=== PATIENT | female | born 2000 | race Caucasian/White ===

== ENCOUNTER 2023-11-10 20:54 | Observation (INO) ==
[2023-11-10 21:23] LABS: Basophils # (auto) 0.06 K/uL (0.00-0.20); Basophils % (auto) 0.5 %; Eosinophils # (auto) 0.02 K/uL (0.00-0.50); Eosinophils % (auto) 0.2 %; Hemoglobin 11.9 g/dl (12.0-16.0); Immature Granulocytes # (auto) 0.04 K/uL (0.01-0.20); Immature Granulocytes % (auto) 0.3 %; Lymphocytes # (auto) 1.25 K/uL (1.20-3.40); Lymphocytes % (auto) 10.7 %; Mean Corpuscular Hemoglobin 28.6 pg (25.0-34.0); Mean Corpuscular Hgb Conc 32.2 g/dL (32.0-36.0); Mean Corpuscular Volume 88.9 fL (80.0-100.0); Mean Platelet Volume 10.1 fL (9.4-12.4); Monocytes # (auto) 0.84 K/uL (0.11-0.59); Monocytes % (auto) 7.2 %; Neutrophils # (auto) 9.42 K/uL (1.40-6.50); Neutrophils % (auto) 81.1 %; Platelet Count 297 K/uL (130-400); RDW Coefficient of Variation 14.4 % (11.5-14.5); RDW Standard Deviation 46.6 fL (36.4-46.3); Red Blood Count 4.16 M/uL (4.20-5.40); White Blood Count 11.63 K/ul (4.8-10.8)
[2023-11-10 21:36] LABS: Pregnancy Test, Serum Negative (Negative)
--- NOTE | 2023-11-10 21:37 | Emergency Department Note ---
History of Present Illness General Chief complaint: Chest Pain Stated complaint: REACTION TO MEDS, NAUSEA, CHEST PAIN, PERIOD EARLY Time Seen by Provider: 11/10/23 21:10 History of Present Illness Maximum Pain Intensity: 7 NAME: IZA SAMSON AGE: 23 SEX: F : 2000 ARRIVES VIA: Walk-In INFORMANT: Patient, Boyfriend ED PROVIDER(S): ALLYSSA Condon, Jm Peralta DO The patient is a pleasant 23-year-old female who arrives to the emergency department with her significant other for evaluation of syncope, chest pain, shortness of breath, as well as dysuria and abdominal pain. She reports she has had multiple episodes of syncope, due to not feeling well. She has been seen in the emergency department twice prior to today's visit. She reports she was diagnosed with a urinary tract infection, however states she feels as if she is getting worse. She denies fever, and reports she had some nausea with vomiting today. Home Medications Medication Instructions Recorded Confirmed Type ciprofloxacin HCl 500 mg tablet 500 mg PO BID 5 days #10 tabs 11/11/23 Rx Allergies Allergy/AdvReac Type Severity Reaction Status Date / Time No Known Allergies Allergy Verified 11/10/23 21:10 Past Med/Surg History Problem List (Updated 11/12/23 @ 00:41 by ALLYSSA Reynolds) Pyelonephritis (Acute) Chest pain Acute dehydration (Acute) UTI (urinary tract infection) (Acute) Syncope (Acute) Hematuria (Acute) Medical History Urinary tract infection Social History Smoking Status: Never smoker Hx Alcohol Use: No Hx Substance Use: No Preferred Language: Sinhala Garageman Required: No Beliefs That Will Affect Care: None Current Living Situation: Significant Other Feels Safe at Home: Yes Physical Exam Vital Signs Vital Signs - 24 hr 11/10/23 20:56 11/10/23 21:09 11/10/23 21:13 Temperature 36.8 C Temperature Source Temporal Artery Scan Pulse Rate 122 H 96 H Pulse Rate [Right Finger] 96 H Respiratory Rate 16 19 Respiratory Effort / Characteristics Non-Labored Spontaneous Respiratory Depth Normal Blood Pressure 119/82 Blood Pressure [Right Arm] 118/71 Blood Pressure Mean 94 Blood Pressure Mean [Right Arm] 86 Pulse Oximetry 98 99 Oxygen Delivery Method Room Air Room Air Sepsis Recent Fever Within 48 Hours No Sepsis New/Unexplained Change in Mental Status No Sepsis Action Taken by Nursing No Action Required 11/10/23 21:13 11/10/23 21:44 11/10/23 22:32 Temperature Temperature Source Pulse Rate Pulse Rate [Right Finger] 101 H 93 H Respiratory Rate 19 16 Respiratory Effort / Characteristics Respiratory Depth Blood Pressure Blood Pressure [Right Arm] 107/67 113/82 Blood Pressure Mean Blood Pressure Mean [Right Arm] 80 92 Pulse Oximetry 100 99 Oxygen Delivery Method Room Air Room Air Room Air Sepsis Recent Fever Within 48 Hours Sepsis New/Unexplained Change in Mental Status Sepsis Action Taken by Nursing 11/10/23 23:48 Temperature Temperature Source Pulse Rate Pulse Rate [Right Finger] 105 H Respiratory Rate 19 Respiratory Effort / Characteristics Respiratory Depth Blood Pressure Blood Pressure [Right Arm] Blood Pressure Mean Blood Pressure Mean [Right Arm] Pulse Oximetry 99 Oxygen Delivery Method Room Air Sepsis Recent Fever Within 48 Hours Sepsis New/Unexplained Change in Mental Status Sepsis Action Taken by Nursing VITALS: Vitals are noted on the nurse's note and reviewed by myself. Vital signs stable. GENERAL: 23-year-old female, in no acute distress, nondiaphoretic, well- developed well-nourished. SKIN: The skin was without rashes, erythema, edema, or bruising. HEAD: Normocephalic atraumatic. HEART: Regular rate and rhythm without murmurs gallops or rubs. LUNGS: Clear to auscultation bilaterally without wheezes, rales or rhonchi. No retractions or accessory muscle use. ABDOMEN: Positive bowel sounds x 4. Tender to palpation diffusely mid abdomen, no rebound tenderness or guarding. MUSCULOSKELETAL: No muscle atrophy, erythema, or edema noted. Normal gait. Strength 5/5 throughout. NEURO: Patient was alert and oriented to person place and time. No focal neurological deficits. Course Administered Medications Discontinued Medications Docusate Sodium (Docusate Sodium 100 Mg Cap) 100 mg PO BID ELIAN Stop: 12/11/23 08:59 Last Admin: 11/11/23 08:22 Dose: 100 mg Documented By: JANET Sodium Chloride (Nss) 1,000 mls @ 999 mls/hr IV .Q1H1M ONE Stop: 11/10/23 22:39 Last Infusion: 11/10/23 21:44 Dose: Infused Documented By: Admin: 11/10/23 21:44 Dose: 999 mls/hr Documented By: ASW Ceftriaxone Sodium (Rocephin) 1,000 mg in 50 mls @ 100 mls/hr IV NOW STA Stop: 11/10/23 23:59 Last Infusion: 11/11/23 00:06 Dose: Infused Documented By: Admin: 11/10/23 23:40 Dose: 100 mls/hr Documented By: ASW Sodium Chloride (Nss) 1,000 mls @ 999 mls/hr IV .Q1H1M ONE Stop: 11/11/23 00:30 Last Infusion: 11/11/23 00:38 Dose: Infused Documented By: Admin: 11/10/23 23:40 Dose: 999 mls/hr Documented By: ASW Lactated Ringer's (Lr) 1,000 mls @ 100 mls/hr IV .Q10H ELIAN Stop: 11/11/23 21:55 Last Admin: 11/11/23 02:12 Dose: 100 mls/hr Documented By: KARTHIK Ioversol (Optiray 320 100ml) 93 ml IV ONCE ONE Stop: 11/10/23 22:11 Last Admin: 11/10/23 22:10 Dose: 93 ml Documented By: ANNA MARIE Ioversol (Optiray 320 125ml) 118 ml IV ONCE ONE Stop: 11/11/23 00:39 Last Admin: 11/11/23 00:39 Dose: 118 ml Documented By: RASHAAD Ketorolac Tromethamine (Ketorolac Tromethamine 15 Mg/Ml Vial) 10 mg IV NOW ONE Stop: 11/10/23 23:31 Last Admin: 11/10/23 23:40 Dose: 10 mg Documented By: ASDalton Ondansetron HCl (Ondansetron Inj 2 Mg/Ml 2 Ml Vial) 4 mg IV NOW STA Stop: 11/10/23 21:40 Last Admin: 11/10/23 21:44 Dose: 4 mg Documented By: ASDalton Polyethylene Glycol (Polyethylene (Miralax) 17 Gm Pack) 17 gm PO DAILY ELIAN Stop: 12/11/23 08:59 Last Admin: 11/11/23 08:22 Dose: 17 gm Documented By: JANET Medical Decision Making Differential Diagnosis Appendicitis, ovarian cyst, ovarian torsion, ectopic , TOA, PID, infections, diverticulitis, UTI, obstruction, mesenteric ischemia, aortic pathology, inflammatory bowel disease, renal colic, PUD, pancreatitis, biliary pathology, hernia, volvulus, constipation, as well as other pathologies. Medical Records Attestation: I reviewed the patient's medical records. Home Medications Current Medication List: was personally reviewed by me Laboratory Data Attestation: I reviewed the patient's lab results. CBC shows leukocytosis, 11.63, hemoglobin 11.9, hematocrit 37.0, no significant electrolyte abnormalities. D-dimer negative, lactate 1.2, urinalysis positive for 2+ blood, positive nitrites, trace leukocyte esterase. 11/11/23 06:03 11/11/23 06:03 Lab Results 11/10/23 11/10/23 11/10/23 Range/Units 21:09 22:53 23:43 WBC 11.63 H (4.8-10.8) K/ul RBC 4.16 L (4.20-5.40) M/uL Hgb 11.9 L (12.0-16.0) g/dl Hct 37.0 (37.0-47.0) % MCV 88.9 (80.0-100.0) fL MCH 28.6 (25.0-34.0) pg MCHC 32.2 (32.0-36.0) g/dL RDW Std Deviation 46.6 H (36.4-46.3) fL RDW Coeff of Johnny 14.4 (11.5-14.5) % Plt Count 297 (130-400) K/uL MPV 10.1 (9.4-12.4) fL Immature Gran % (Auto) 0.3 % Neut % (Auto) 81.1 % Lymph % (Auto) 10.7 % [place] % (Auto) 7.2 % Eos % (Auto) 0.2 % Baso % (Auto) 0.5 % Neut # (Auto) 9.42 H (1.40-6.50) K/uL Lymph # (Auto) 1.25 (1.20-3.40) K/uL [place] # (Auto) 0.84 H (0.11-0.59) K/uL Eos # (Auto) 0.02 (0.00-0.50) K/uL Baso # (Auto) 0.06 (0.00-0.20) K/uL Immature Gran # (Auto) 0.04 (0.01-0.20) K/uL D-Dimer 310 (0-500) ug/L FEU Sodium 138 (136-145) mmol/L Potassium 3.6 (3.5-5.1) mmol/L Chloride 107 (98-107) mmol/L Carbon Dioxide 22 (21-32) mmol/L Anion Gap 9 (3-11) BUN 15 (6-23) mg/dl Creatinine 1.07 (0.6-1.2) mg/dl Est Cr Clr Drug Dosing 63.3 ml/min Est GFR ( Amer) 85.9 ml/min Est GFR (Non-Af Amer) 74.2 ml/min BUN/Creatinine Ratio 14.0 (10-20) Glucose 102 H (70-99(Fasting)) mg/dl Lactate 1.2 (0.4-2.0) mmol/L Calcium 9.6 (8.6-10.3) mg/dl Total Bilirubin 1.7 H (0.2-1.0) mg/dl AST 16 (13-39) U/L ALT 8 (7-52) U/L Alkaline Phosphatase 63 (34-104) U/L Troponin I High Sens < 2.3 (0-14) pg/ml Total Protein 7.7 (6.0-8.3) gm/dl Albumin 4.6 (3.4-5.0) gm/dl Globulin 3.1 (2.5-4.0) gm/dl Albumin/Globulin Ratio 1.5 (0.9-2) Lipase 15 (11-82) U/L HCG, Qual Negative (Negative) Urine Color Dark Yellow Urine Appearance Clear (Clear) Urine pH 6.0 (4.5-7.5) Ur Specific [place] 1.022 (1.000-1.030) Urine Protein Negative (Negative) Urine Glucose (UA) Negative (Negative) Urine Ketones Trace H (Negative) Urine Blood 2+ H (Negative) Urine Nitrite Positive A (Negative) Urine Bilirubin Negative (Negative) Urine Urobilinogen Negative (Negative) Ur Leukocyte Esterase Trace H (Negative) Urine WBC (Auto) 0-5 (0-5) /hpf Urine RBC (Auto) >20 H (0-2) /hpf U Hyaline Cast (Auto) 0-2 (0-2) /lpf U Epithel Cells (Auto) 0-2 (0-2) /hpf Urine Bacteria (Auto) None Seen (None Seen) Imaging Data Radiologist's Impression: Abdomen/Pelvis CT 11/10/23 21:39 Exam(s): CT ABDOMEN + PELVIS With Contrast IV Amt: 93 cc opti 320 EXAM: CT Abdomen and Pelvis With Intravenous Contrast CLINICAL HISTORY: Reason for exam: abdominal pain, nausea, vomiting, UTI. TECHNIQUE: Axial computed tomography images of the abdomen and pelvis with intravenous contrast. CTDI is 7.48 mGy and DLP is 564.96 mGy-cm. Automated exposure control was utilized for the study. A dose lowering technique was utilized adhering to the principles of ALARA. CONTRAST: Patient received 93 cc opti 320 of IV contrast COMPARISON: 11/08/23 FINDINGS: Lung bases: Unremarkable. No mass. No consolidation. ABDOMEN: Liver: Unremarkable. No mass. Gallbladder and bile ducts: Unremarkable. No calcified stones. No ductal dilation. Pancreas: Unremarkable. No mass. No ductal dilation. Spleen: Unremarkable. No splenomegaly. Adrenals: Unremarkable. No mass. Kidneys and ureters: Heterogeneous enhancement of both kidneys. No hydronephrosis. Stomach and bowel: Increased colonic stool burden suggesting constipation. No bowel obstruction. No mucosal thickening. PELVIS: Appendix: Appendix not visualized. Bladder: Unremarkable. No mass. Reproductive: Unremarkable as visualized. ABDOMEN and PELVIS: Intraperitoneal space: Unremarkable. No free air, significant free fluid, or fluid collection. Bones/joints: No acute fracture. No dislocation. Soft tissues: Unremarkable. Vasculature: Unremarkable. No abdominal aortic aneurysm. Lymph nodes: Unremarkable. No enlarged lymph nodes. IMPRESSION: 1. Heterogeneous enhancement of both kidneys. Appearance raises the possibility of pyelonephritis. Correlation with urinalysis recommended. 2. Increased colonic stool burden suggesting constipation. Electronically signed by: Jose De Jesus Ochoa M.D. 11/10/23 23:27 PM MDM Narrative The patient is a pleasant 23-year-old female who arrives to the emergency department for the above-stated complaint. Upon examination the patient is diffusely tender across the mid abdomen, with multiple repeat visits in the last few days. A saline lock was established, CBC, CMP, lipase, D-dimer, troponin, urinalysis were obtained. CBC shows leukocytosis, with a decrease in hemoglobin and hematocrit from the previous visit, CMP is unremarkable, lipase negative, lactate negative, troponin negative, urinalysis positive for nitrites, leukocyte esterase, with 2+ blood. EKG shows sinus rhythm with sinus arrhythmia, rate of 96, with no ST elevation, depression, or ectopy and no changes from the previous 2 days before. Chest x-ray per my initial interpretation shows no acute cardiopulmonary process. CT imaging of the abdomen and pelvis with IV contrast was obtained due to the patient's elevation in white count from previous visit, as well as continued pain. CT imaging shows bilateral heterogeneous enhancement of both kidneys consistent with pyelonephritis. The patient was provided IV Rocephin in the emergency department, as well as 2 L of IV fluid. The patient was provided IV Zofran for nausea, as well as IV Toradol for pain. I spoke with the patient regarding the need for admission, due to requiring IV antibiotic treatment. She was amenable to treatment. I spoke with [facility] management who [facility] for [facility]. Please refer to his documentation for further patient workup and care. Continuous monitor car operator: Order was placed for continuous monitor car operator. Patient was placed on the monitor car operator. Patient was noted to be in sinus tachycardia at an initial rate of 96 bpm. Impression & Plan Pyelonephritis Discharge Plan Visit Data Chief Complaint: Chest Pain Stated Complaint: REACTION TO MEDS, NAUSEA, CHEST PAIN, PERIOD EARLY ED Provider: Jm Peralta ED Midlevel Provider: Martha Perez Discharge Problem: Pyelonephritis Patient Disposition: Admitted As Inpatient Discharge Instructions Interventions: ED Discharge Assessment Last Done: 11/11/23 01:28
[2023-11-10] MEDS: ONDANSETRON INJ 2 MG/ML 2 ML VIAL IV STA (21:44)
[2023-11-10] MEDS: SODIUM CHLORIDE 0.9% 1,000 ML IV ONE ×2 (21:44→23:40)
[2023-11-10 21:47] LABS: Alanine Aminotransferase 8 U/L (7-52); Albumin Globulin Ratio 1.5 (0.9-2); Albumin Level 4.6 gm/dl (3.4-5.0); Alkaline Phosphatase 63 U/L (34-104); Anion Gap 9 (3-11); Aspartate Aminotransferase 16 U/L (13-39); Bilirubin,Total 1.7 mg/dl (0.2-1.0); Blood Urea Nitrogen 15 mg/dl (6-23); Calcium 9.6 mg/dl (8.6-10.3); Carbon Dioxide 22 mmol/L (21-32); Chloride 107 mmol/L (98-107); Creatinine Clr Calc Pharmacy 63.3 ml/min; Est GFR (African American) 85.9 ml/min; Est GFR (Non-African American) 74.2 ml/min; Globulin 3.1 gm/dl (2.5-4.0); Glucose 102 mg/dl (70-99(Fasting)); Lipase 15 U/L (11-82); Potassium 3.6 mmol/L (3.5-5.1); Sodium 138 mmol/L (136-145); Total Protein 7.7 gm/dl (6.0-8.3)
[2023-11-10 21:48] LABS: Troponin I High Sensitivity < 2.3 pg/ml (0-14)
[2023-11-10 21:49] LABS: D Dimer 310 ug/L FEU (0-500)
[2023-11-10] MEDS: OPTIRAY 320 100ml IV ONE (22:10)
--- NOTE | 2023-11-10 23:28 | CT Scan Report ---
Exam(s): CT ABDOMEN + PELVIS With Contrast IV Amt: 93 cc opti 320 EXAM: CT Abdomen and Pelvis With Intravenous Contrast CLINICAL HISTORY: Reason for exam: abdominal pain, nausea, vomiting, UTI. TECHNIQUE: Axial computed tomography images of the abdomen and pelvis with intravenous contrast. CTDI is 7.48 mGy and DLP is 564.96 mGy-cm. Automated exposure control was utilized for the study. A dose lowering technique was utilized adhering to the principles of ALARA. CONTRAST: Patient received 93 cc opti 320 of IV contrast COMPARISON: 11/08/23 FINDINGS: Lung bases: Unremarkable. No mass. No consolidation. ABDOMEN: Liver: Unremarkable. No mass. Gallbladder and bile ducts: Unremarkable. No calcified stones. No ductal dilation. Pancreas: Unremarkable. No mass. No ductal dilation. Spleen: Unremarkable. No splenomegaly. Adrenals: Unremarkable. No mass. Kidneys and ureters: Heterogeneous enhancement of both kidneys. No hydronephrosis. Stomach and bowel: Increased colonic stool burden suggesting constipation. No bowel obstruction. No mucosal thickening. PELVIS: Appendix: Appendix not visualized. Bladder: Unremarkable. No mass. Reproductive: Unremarkable as visualized. ABDOMEN and PELVIS: Intraperitoneal space: Unremarkable. No free air, significant free fluid, or fluid collection. Bones/joints: No acute fracture. No dislocation. Soft tissues: Unremarkable. Vasculature: Unremarkable. No abdominal aortic aneurysm. Lymph nodes: Unremarkable. No enlarged lymph nodes. IMPRESSION: 1. Heterogeneous enhancement of both kidneys. Appearance raises the possibility of pyelonephritis. Correlation with urinalysis recommended. 2. Increased colonic stool burden suggesting constipation. Electronically signed by: Jose De Jesus Ochoa M.D. 11/10/23 23:27 PM
[2023-11-10] MEDS: KETOROLAC TROMETHAMINE 15 MG/ML VIAL IV ONE (23:40)
[2023-11-10] MEDS: cefTRIAXone SODIUM 1,000 MG/50 ML BAG IV STA (23:40)
[2023-11-11 00:04] LABS: Appearance Urine Clear (Clear); Bacteria Urine Automated None Seen (None Seen); Bilirubin Urine Negative (Negative); Blood Urine 2+ (Negative); Cast Urine Automated 0-2 /lpf (0-2); Color Urine Dark Yellow; Epithelial Cell Urine Auto 0-2 /hpf (0-2); Glucose Urine UA Negative (Negative); Ketones Urine Trace (Negative); Leukocyte Esterase Urine Trace (Negative); Nitrite Urine Positive (Negative); Protein Urine Negative (Negative); RBC Urine Automated >20 /hpf (0-2); Specific Gravity Urine 1.022 (1.000-1.030); Urobilinogen Urine Negative (Negative); WBC Urine Automated 0-5 /hpf (0-5)
[2023-11-11] MEDS: OPTIRAY 320 125ml IV ONE (00:39)
--- NOTE | 2023-11-11 00:49 | History & Physical Report ---
Date of Service November 10, 2023 Assessment & Plan (1) Pyelonephritis: Plan: - noted on CT A&P - no leukocytosis, afebrile, mildly tachycardic - ceftriaxone in the ED; plan to continue - no sensitives from prior culture - repeat urine culture pending - Zofran prn for nausea - Toradol/Tylenol prn for pain - LR @100ml/hr x 2L (2) Chest pain: Plan: - pleuritic pain with sinus tachycardia - CTA negative - reflux possible in the setting of nausea/vomiting-> add PPI daily (3) Syncope: Plan: - likely vasovagal in the setting of acute dehydration - CTA negative - neuro exam nonfocal - fluids as per above - monitor on telemetry Plan Diet: Regular Code: Full VTE Prophylaxis: Lovenox History of Present Illness Primary Care Provider: NO PCP 23 year old female presenting with urinary symptoms/chest pain. Symptoms started 4 days again- urinary frequency, flank pain. Was seen in ED 11/06 and started on Bactrim, seen again on 11/07 and course of antibiotics extended to 10 days. Urine culture grew Lactobacillus species plus low counts of other mixed silvana. Urine culture from 11/07 was 3+ organisms. Symptoms have not improved, now having some nauseas. Notes syncope episode, lightheaded/dizzy prior. Chest pain today, which prompted her to come back to ED. Describes as midsternal, pleuritic. Does not radiate, denies dyspnea. ED Course Significant for: Tachycardic, EKG with sinus tachycardia, trop wnl, CT A&P with Heterogeneous enhancement of both kidneys. Appearance raises the possibility of pyelonephritis. S/p 2L IVF, 1g ceftriaxone. Allergies Allergy/AdvReac Type Severity Reaction Status Date / Time No Known Allergies Allergy Verified 11/10/23 21:10 Home Medications Medication Instructions Recorded Confirmed Type sulfamethoxazole 800 1 tab PO BID 3 days #6 tabs 11/08/23 11/10/23 Rx mg-trimethoprim 160 mg tablet (Bactrim DS) Past Med/Surg History Problem List (Updated 11/11/23 @ 01:55 by Neha Leung DO) Pyelonephritis Chest pain Acute dehydration (Acute) UTI (urinary tract infection) (Acute) Syncope (Acute) Hematuria (Acute) Medical History Urinary tract infection Social History Smoking Status: Never smoker Hx Alcohol Use: No Hx Substance Use: No Preferred Language: Frisian Driver/Merchandiser Required: No Beliefs That Will Affect Care: None Current Living Situation: Significant Other Feels Safe at Home: Yes Safety Concerns: Feels Safe At This Time Review of Systems Review of Systems: As per above Physical Exam Physical Exam: Constitutional: well-appearing, no acute distress HEENT: NCAT, no conjunctival injection CV: regular rhythm, no murmur appreciated, extremities well-perfused, no LE edema Resp: CTABL, no wheezes/rales/rhonchi appreciated, no increased work of breathing GI: soft, nondistended, nontender MSK: no gross deformities appreciated Skin: warm, dry, no rash appreciated Neuro: alert, oriented, no focal neurologic deficit appreciated Results & Data Results & Data Vital Signs (Past 12 Hours) Vital Signs Temp Pulse Pulse Resp BP BP Pulse Ox 11/10/23 23:48 105 H 19 99 11/10/23 22:32 93 H 16 113/82 99 11/10/23 21:44 101 H 19 107/67 100 11/10/23 21:13 11/10/23 21:13 96 H 19 118/71 99 11/10/23 21:09 96 H 11/10/23 20:56 36.8 C 122 H 16 119/82 98 O2 Del Method 11/10/23 23:48 Room Air 11/10/23 22:32 Room Air 11/10/23 21:44 Room Air 11/10/23 21:13 Room Air 11/10/23 21:13 Room Air 11/10/23 21:09 11/10/23 20:56 Room Air Supervising Physician Co-Signing Physician Notes Attending addendum: I have physically seen this patient, have supervised the medical residents activities, and agree with the H&P unless as otherwise noted. Assessment and Plan: Bilateral pyelonephritis- CT scan abdomen and pelvis Follow urine culture and sensitivity Ceftriaxone 1 g IV daily Status post 2 L normal saline bolus from the ED Maintenance IV fluids with LR 100 mL/h x 1 L Syncopal episode- Likely vasovagal CTA scan negative for PE Likely secondary to physiologic stress of UTI and dehydration on telemetry Resident Activity Tracking Resident Involvement: Resident Care Provided Care Provided: Adult Hospital Medicine (3) Syncope Syncope type: unspecified Qualified Code(s): R55 - Syncope and collapse
[2023-11-11] MEDS ORDERED: ACETAMINOPHEN 500 MG TAB PO PRN (01:56)
[2023-11-11] MEDS ORDERED: ONDANSETRON INJ 2 MG/ML 2 ML VIAL IV PRN (01:56)
--- NOTE | 2023-11-11 01:57 | CT Scan Report ---
Exam(s): CTA CHEST IV Amt: 118 cc's optiray 320 EXAM: CT Angiography Chest With Intravenous Contrast CLINICAL HISTORY: Reason for exam: PE. TECHNIQUE: Axial computed tomographic angiography images of the chest with intravenous contrast. CTDI is 0 mGy and DLP is 254.63 mGy-cm. Automated exposure control was utilized for the study. A dose lowering technique was utilized adhering to the principles of ALARA. MIP reconstructed images were created and reviewed. COMPARISON: No relevant prior studies available. FINDINGS: Pulmonary arteries: Unremarkable. No pulmonary embolism. Aorta: No acute findings. No thoracic aortic aneurysm. Lungs: Unremarkable. No mass. No consolidation. Pleural space: Unremarkable. No significant effusion. No pneumothorax. Heart: Unremarkable. No cardiomegaly. No significant pericardial effusion. Bones/joints: No acute fracture. No dislocation. Soft tissues: Unremarkable. Lymph nodes: Unremarkable. No enlarged lymph nodes. Kidneys and ureters: Nonspecific heterogeneous enhancement of both kidneys. IMPRESSION: 1. No pulmonary embolism. 2. Nonspecific heterogeneous enhancement of both kidneys. Correlate with urinalysis and serum chemistries. Electronically signed by: Jose De Jesus Ochoa M.D. 11/11/23 01:56 AM
[2023-11-11] MEDS ORDERED: KETOROLAC TROMETHAMINE 15 MG/ML VIAL IV PRN (02:02)
[2023-11-11] MEDS: LACTATED RINGER'S 1,000 ML IV SCH (02:12)
--- NOTE | 2023-11-11 05:38 | Billing Data ---
Date of Service November 11, 2023 Coding Level of Care Code 58116 INT INP/OBS CARE
[2023-11-11 06:26] LABS: Basophils # (auto) 0.05 K/uL (0.00-0.20); Basophils % (auto) 0.7 %; Eosinophils # (auto) 0.07 K/uL (0.00-0.50); Eosinophils % (auto) 0.9 %; Hematocrit (blood only) 30.9 % (37.0-47.0); Immature Granulocytes # (auto) 0.02 K/uL (0.01-0.20); Immature Granulocytes % (auto) 0.3 %; Lymphocytes # (auto) 2.23 K/uL (1.20-3.40); Lymphocytes % (auto) 29.4 %; Mean Corpuscular Hemoglobin 28.9 pg (25.0-34.0); Mean Corpuscular Hgb Conc 32.4 g/dL (32.0-36.0); Mean Corpuscular Volume 89.3 fL (80.0-100.0); Mean Platelet Volume 10.6 fL (9.4-12.4); Monocytes # (auto) 0.87 K/uL (0.11-0.59); Monocytes % (auto) 11.5 %; Neutrophils # (auto) 4.34 K/uL (1.40-6.50); Neutrophils % (auto) 57.2 %; Platelet Count 257 K/uL (130-400); RDW Coefficient of Variation 14.6 % (11.5-14.5); RDW Standard Deviation 47.3 fL (36.4-46.3); Red Blood Count 3.46 M/uL (4.20-5.40); White Blood Count 7.58 K/ul (4.8-10.8)
[2023-11-11 06:40] LABS: Albumin Globulin Ratio 1.5 (0.9-2); Albumin Level 3.7 gm/dl (3.4-5.0); BUN Creatinine Ratio 12.3 (10-20); Bilirubin,Total 1.1 mg/dl (0.2-1.0); Calcium 8.6 mg/dl (8.6-10.3); Est GFR (African American) 120.3 ml/min; Est GFR (Non-African American) 103.8 ml/min; Globulin 2.4 gm/dl (2.5-4.0); Potassium 3.6 mmol/L (3.5-5.1); Total Protein 6.1 gm/dl (6.0-8.3)
--- NOTE | 2023-11-11 07:31 | XRay Report ---
XR chest 1V portable CLINICAL HISTORY: Chest pain, nonspecific COMPARISON STUDY: Chest radiograph November 08, 2023. FINDINGS: Lung volumes are normal. Lungs are clear. There is no pneumothorax or pleural effusion. Car diac size is normal. Mediastinal contours are normal. There is no evidence for pulmonary edema. IMPRESSION: No acute cardiopulmonary findings. ACT 112: Negative or not required by law. Electronically signed by: Greg White M.D. 11/11/2023 7:30 AM
[2023-11-11 07:59] VITALS: RESP 18; TEMP 97.9
--- NOTE | 2023-11-11 08:13 | Hospitalist Progress Note ---
Date of Service November 11, 2023 Assessment & Plan (1) Pyelonephritis: Plan: Presented to ER on 11/06 with concerns for burning with urination/blood in urine x 2 days with small amount of urine w/ voids.chlamydia/gonorrhoeae negative at that time. Was sent on Bactrim and represented to ER 11/07 with syncope/dehydration and antibiotics extended to 10 days however returned to ER with increased nausea, syncope, lightheaded/dizziness along with chest discomfort which was reported as midsternal, pleuritic in nature. 8/6CTA chest negative for PE. WBC 11.6k on admission w/ tachycardia/dehydration. Cr 1.07 . Lactic 1.2 No eosinophils on differential/rash reported on exam CTAP noting "Nonspecific heterogeneous enhancement of both kidneys. Correlate with urinalysis and serum chemistries." Placed on Ceftriaxone IV Repeat urine cx pending Pain control: APAP, toradol prn Antiemetics: Zofran prn LR @ 100cc/hr x 2L Added colace BID,miralax daily for increased stool burden/constipation on CTAP which can worsen discomfort (2) Chest pain: Plan: - pleuritic pain with sinus tachycardia - CTA negative - reflux possible in the setting of nausea/vomiting-> add PPI daily HRs improving w IVF, 60s this morning Check orthostatic VS/magnesium level (3) Syncope: Plan: - likely vasovagal in the setting of acute dehydration - CTA negative - neuro exam nonfocal - fluids as per above - monitor on telemetry - if any issues/murmur on exam can check echo Plan Diet: Regular Code: Full VTE Prophylaxis: Lovenox if needed however if ambulating in the room may be able to hold off Admission and Anticipated Discharge Date Admission Date: November 10, 2023 Subjective BRIDGE NOTE: ADMITTED AT MIDNIGHT Results & Data Results & Data Vital Signs (Past 12 Hours) Vital Signs Temp Pulse Pulse Resp BP BP Pulse Ox 11/11/23 07:58 36.6 C 63 18 115/61 98 11/11/23 02:01 36.8 C 96 H 16 102/72 97 11/11/23 02:01 11/11/23 01:57 100 H 11/11/23 01:05 88 11/11/23 00:42 93 H 16 117/56 L 99 11/10/23 23:48 105 H 19 99 11/10/23 22:32 93 H 16 113/82 99 11/10/23 21:44 101 H 19 107/67 100 11/10/23 21:13 11/10/23 21:13 96 H 19 118/71 99 11/10/23 21:09 96 H 11/10/23 20:56 36.8 C 122 H 16 119/82 98 Pulse Ox O2 Del Method O2 Del Method 11/11/23 07:58 Room Air 11/11/23 02:01 Room Air 11/11/23 02:01 97 Room Air 11/11/23 01:57 11/11/23 01:05 11/11/23 00:42 Room Air 11/10/23 23:48 Room Air 11/10/23 22:32 Room Air 11/10/23 21:44 Room Air 11/10/23 21:13 Room Air 11/10/23 21:13 Room Air 11/10/23 21:09 11/10/23 20:56 Room Air Laboratory Results 11/11/23 11/10/23 11/10/23 Range/Units 06:03 23:43 22:53 WBC 7.58 (4.8-10.8) K/ul RBC 3.46 L (4.20-5.40) M/uL Hgb 10.0 L (12.0-16.0) g/dl Hct 30.9 L (37.0-47.0) % MCV 89.3 (80.0-100.0) fL MCH 28.9 (25.0-34.0) pg MCHC 32.4 (32.0-36.0) g/dL RDW Std Deviation 47.3 H (36.4-46.3) fL RDW Coeff of Johnny 14.6 H (11.5-14.5) % Plt Count 257 (130-400) K/uL MPV 10.6 (9.4-12.4) fL Immature Gran % (Auto) 0.3 % Neut % (Auto) 57.2 % Lymph % (Auto) 29.4 % Howell % (Auto) 11.5 % Eos % (Auto) 0.9 % Baso % (Auto) 0.7 % Neut # (Auto) 4.34 (1.40-6.50) K/uL Lymph # (Auto) 2.23 (1.20-3.40) K/uL Howell # (Auto) 0.87 H (0.11-0.59) K/uL Eos # (Auto) 0.07 (0.00-0.50) K/uL Baso # (Auto) 0.05 (0.00-0.20) K/uL Immature Gran # (Auto) 0.02 (0.01-0.20) K/uL D-Dimer (0-500) ug/L FEU Sodium 138 (136-145) mmol/L Potassium 3.6 (3.5-5.1) mmol/L Chloride 109 H (98-107) mmol/L Carbon Dioxide 22 (21-32) mmol/L Anion Gap 7 (3-11) BUN 10 (6-23) mg/dl Creatinine 0.81 (0.6-1.2) mg/dl Est Cr Clr Drug Dosing 85.0 ml/min Est GFR ( Amer) 120.3 ml/min Est GFR (Non-Af Amer) 103.8 ml/min BUN/Creatinine Ratio 12.3 (10-20) Glucose 87 (70-99(Fasting)) mg/dl Lactate 1.2 (0.4-2.0) mmol/L Calcium 8.6 (8.6-10.3) mg/dl Total Bilirubin 1.1 H (0.2-1.0) mg/dl AST 13 (13-39) U/L ALT 7 (7-52) U/L Alkaline Phosphatase 51 (34-104) U/L Troponin I High Sens (0-14) pg/ml Total Protein 6.1 D (6.0-8.3) gm/dl Albumin 3.7 (3.4-5.0) gm/dl Globulin 2.4 L (2.5-4.0) gm/dl Albumin/Globulin Ratio 1.5 (0.9-2) Lipase (11-82) U/L HCG, Qual (Negative) Urine Color Dark Yellow Urine Appearance Clear (Clear) Urine pH 6.0 (4.5-7.5) Ur Specific [place] 1.022 (1.000-1.030) Urine Protein Negative (Negative) Urine Glucose (UA) Negative (Negative) Urine Ketones Trace H (Negative) Urine Blood 2+ H (Negative) Urine Nitrite Positive A (Negative) Urine Bilirubin Negative (Negative) Urine Urobilinogen Negative (Negative) Ur Leukocyte Esterase Trace H (Negative) Urine WBC (Auto) 0-5 (0-5) /hpf Urine RBC (Auto) >20 H (0-2) /hpf U Hyaline Cast (Auto) 0-2 (0-2) /lpf U Epithel Cells (Auto) 0-2 (0-2) /hpf Urine Bacteria (Auto) None Seen (None Seen) 11/10/23 Range/Units 21:09 WBC 11.63 H (4.8-10.8) K/ul RBC 4.16 L (4.20-5.40) M/uL Hgb 11.9 L (12.0-16.0) g/dl Hct 37.0 (37.0-47.0) % MCV 88.9 (80.0-100.0) fL MCH 28.6 (25.0-34.0) pg MCHC 32.2 (32.0-36.0) g/dL RDW Std Deviation 46.6 H (36.4-46.3) fL RDW Coeff of Johnny 14.4 (11.5-14.5) % Plt Count 297 (130-400) K/uL MPV 10.1 (9.4-12.4) fL Immature Gran % (Auto) 0.3 % Neut % (Auto) 81.1 % Lymph % (Auto) 10.7 % Howell % (Auto) 7.2 % Eos % (Auto) 0.2 % Baso % (Auto) 0.5 % Neut # (Auto) 9.42 H (1.40-6.50) K/uL Lymph # (Auto) 1.25 (1.20-3.40) K/uL Howell # (Auto) 0.84 H (0.11-0.59) K/uL Eos # (Auto) 0.02 (0.00-0.50) K/uL Baso # (Auto) 0.06 (0.00-0.20) K/uL Immature Gran # (Auto) 0.04 (0.01-0.20) K/uL D-Dimer 310 (0-500) ug/L FEU Sodium 138 (136-145) mmol/L Potassium 3.6 (3.5-5.1) mmol/L Chloride 107 (98-107) mmol/L Carbon Dioxide 22 (21-32) mmol/L Anion Gap 9 (3-11) BUN 15 (6-23) mg/dl Creatinine 1.07 (0.6-1.2) mg/dl Est Cr Clr Drug Dosing 63.3 ml/min Est GFR ( Amer) 85.9 ml/min Est GFR (Non-Af Amer) 74.2 ml/min BUN/Creatinine Ratio 14.0 (10-20) Glucose 102 H (70-99(Fasting)) mg/dl Lactate (0.4-2.0) mmol/L Calcium 9.6 (8.6-10.3) mg/dl Total Bilirubin 1.7 H (0.2-1.0) mg/dl AST 16 (13-39) U/L ALT 8 (7-52) U/L Alkaline Phosphatase 63 (34-104) U/L Troponin I High Sens < 2.3 (0-14) pg/ml Total Protein 7.7 (6.0-8.3) gm/dl Albumin 4.6 (3.4-5.0) gm/dl Globulin 3.1 (2.5-4.0) gm/dl Albumin/Globulin Ratio 1.5 (0.9-2) Lipase 15 (11-82) U/L HCG, Qual Negative (Negative) Urine Color Urine Appearance (Clear) Urine pH (4.5-7.5) Ur Specific [place] (1.000-1.030) Urine Protein (Negative) Urine Glucose (UA) (Negative) Urine Ketones (Negative) Urine Blood (Negative) Urine Nitrite (Negative) Urine Bilirubin (Negative) Urine Urobilinogen (Negative) Ur Leukocyte Esterase (Negative) Urine WBC (Auto) (0-5) /hpf Urine RBC (Auto) (0-2) /hpf U Hyaline Cast (Auto) (0-2) /lpf U Epithel Cells (Auto) (0-2) /hpf Urine Bacteria (Auto) (None Seen) Diagnostic Findings Chest X-Ray 11/10/23 21:12 XR chest 1V portable CLINICAL HISTORY: Chest pain, nonspecific COMPARISON STUDY: Chest radiograph November 08, 2023. FINDINGS: Lung volumes are normal. Lungs are clear. There is no pneumothorax or pleural effusion. Cardiac size is normal. Mediastinal contours are normal. There is no evidence for pulmonary edema. IMPRESSION: No acute cardiopulmonary findings. ACT 112: Negative or not required by law. Electronically signed by: Greg White M.D. 11/11/2023 7:30 AM Abdomen/Pelvis CT 11/10/23 21:39 Exam(s): CT ABDOMEN + PELVIS With Contrast IV Amt: 93 cc opti 320 EXAM: CT Abdomen and Pelvis With Intravenous Contrast CLINICAL HISTORY: Reason for exam: abdominal pain, nausea, vomiting, UTI. TECHNIQUE: Axial computed tomography images of the abdomen and pelvis with intravenous contrast. CTDI is 7.48 mGy and DLP is 564.96 mGy-cm. Automated exposure control was utilized for the study. A dose lowering technique was utilized adhering to the principles of ALARA. CONTRAST: Patient received 93 cc opti 320 of IV contrast COMPARISON: 11/08/23 FINDINGS: Lung bases: Unremarkable. No mass. No consolidation. ABDOMEN: Liver: Unremarkable. No mass. Gallbladder and bile ducts: Unremarkable. No calcified stones. No ductal dilation. Pancreas: Unremarkable. No mass. No ductal dilation. Spleen: Unremarkable. No splenomegaly. Adrenals: Unremarkable. No mass. Kidneys and ureters: Heterogeneous enhancement of both kidneys. No hydronephrosis. Stomach and bowel: Increased colonic stool burden suggesting constipation. No bowel obstruction. No mucosal thickening. PELVIS: Appendix: Appendix not visualized. Bladder: Unremarkable. No mass. Reproductive: Unremarkable as visualized. ABDOMEN and PELVIS: Intraperitoneal space: Unremarkable. No free air, significant free fluid, or fluid collection. Bones/joints: No acute fracture. No dislocation. Soft tissues: Unremarkable. Vasculature: Unremarkable. No abdominal aortic aneurysm. Lymph nodes: Unremarkable. No enlarged lymph nodes. IMPRESSION: 1. Heterogeneous enhancement of both kidneys. Appearance raises the possibility of pyelonephritis. Correlation with urinalysis recommended. 2. Increased colonic stool burden suggesting constipation. Electronically signed by: Jose De Jesus Ochoa M.D. 11/10/23 23:27 PM Chest CTA 11/10/23 23:58 Exam(s): CTA CHEST IV Amt: 118 cc's optiray 320 EXAM: CT Angiography Chest With Intravenous Contrast CLINICAL HISTORY: Reason for exam: PE. TECHNIQUE: Axial computed tomographic angiography images of the chest with intravenous contrast. CTDI is 0 mGy and DLP is 254.63 mGy-cm. Automated exposure control was utilized for the study. A dose lowering technique was utilized adhering to the principles of ALARA. MIP reconstructed images were created and reviewed. COMPARISON: No relevant prior studies available. FINDINGS: Pulmonary arteries: Unremarkable. No pulmonary embolism. Aorta: No acute findings. No thoracic aortic aneurysm. Lungs: Unremarkable. No mass. No consolidation. Pleural space: Unremarkable. No significant effusion. No pneumothorax. Heart: Unremarkable. No cardiomegaly. No significant pericardial effusion. Bones/joints: No acute fracture. No dislocation. Soft tissues: Unremarkable. Lymph nodes: Unremarkable. No enlarged lymph nodes. Kidneys and ureters: Nonspecific heterogeneous enhancement of both kidneys. IMPRESSION: 1. No pulmonary embolism. 2. Nonspecific heterogeneous enhancement of both kidneys. Correlate with urinalysis and serum chemistries. Electronically signed by: Jose De Jesus Ochoa M.D. 11/11/23 01:56 AM PG Care Time/CCT Total # of Minutes Spent Total Time Spent with Patient: Total time spent is greater than 50% in coordination of care (as documented) at patient's floor/unit and/or counseling patient: Coding Diagnoses Pyelonephritis N12 Chest pain R07.9 Syncope R55 Syncope type: unspecified (3) Syncope Syncope type: unspecified Qualified Code(s): R55 - Syncope and collapse
[2023-11-11] MEDS: POLYETHYLENE (MIRALAX) 17 GM PACK PO SCH (08:22)
[2023-11-11] MEDS: DOCUSATE SODIUM 100 MG CAP PO SCH (08:22)
--- NOTE | 2023-11-11 08:51 | Electrocardiogram Report ---
Test Reason : Blood Pressure : */* mmHG Vent. Rate : 96 BPM Atrial Rate : 96 BPM P-R Int : 126 ms QRS Dur : 82 ms QT Int : 346 ms P-R-T Axes : 66 90 58 degrees QTcB Int : 437 ms Normal sinus rhythm with sinus arrhythmia Rightward axis Borderline ECG When compared with ECG of 08-Nov-2023 19:59, No significant change was found Confirmed by Doug Morales ([id number]) on 11/11/2023 8:50:41 AM Referred By: Confirmed By: Doug Morales
[2023-11-11 08:52] LABS: Ferritin 222.6 ng/ml (8-388); Magnesium 1.8 mg/dl (1.7-2.4)
[2023-11-11] MEDS ORDERED: PANTOprazole 40 MG in SYRINGE 0 ML IV SCH (11:00)
[2023-11-11] MEDS ORDERED: ENOXAPARIN INJ 40 MG/0.4 ML SYR SQ SCH (11:15)
--- NOTE | 2023-11-11 11:20 | Discharge Summary ---
Discharge Summary Date of Service November 11, 2023 Principal Dx & Hospital Course #1 = Principal Diagnosis (1) Pyelonephritis: Presented to ER on 11/06 with concerns for burning with urination/blood in urine x 2 days with small amount of urine w/ voids. chlamydia/gonorrhoeae negative at that time. Was sent on Bactrim and represented to ER 11/07 with syncope/dehydration and antibiotics extended to 10 days however returned to ER with increased nausea, syncope, lightheaded/dizziness along with chest discomfort which was reported as midsternal, pleuritic in nature. TA chest negative for PE. WBC 11.6k on admission w/ tachycardia/dehydration. Cr 1.07 . Lactic 1.2 No eosinophils on differential/rash reported on exam CTAP noting "Nonspecific heterogeneous enhancement of both kidneys. Correlate with urinalysis and serum chemistries." Placed on Ceftriaxone IV on admission Repeat urine cx sent Pain control with ordered APAP/ toradol prn. Zofran prn for nausea LR @ 100cc/hr x 2L Added colace BID,miralax daily for increased stool burden/constipation on CTAP which can worsen discomfort 11/10 Feeling MUCH improved. Eating/drinking. +BS, given stool softener and encouraged to continue at discharge. Patient visiting her boyfriend from [facility] and feeling well, WBC wnl on repeat and no fevers. No further flank pain/CVA tenderness and wanting to go home. No CP/SOB or pleuritic discomfort. NSR on telemetry without issue and HRs improved with IV hydration. No further lightheaded/dizziness or syncopal sx reported Discussed urine cx still pending at discharge but no prior hx recurrent UTIs or prior abx use/resistant and sent on Cipro PO BID x 5 days at discharge. Patient's number to call if any issues [phone] Instructed to monitor for any tendinopathy and avoid strenuous activities. QTC not prolonged on EKG To return to ER with any worsening pain, fever, or recurrance of symptoms. (2) Chest pain: Reported pleuritic pain on admission, was sinus tach on admission/EKG w/ same. Trop <2.3 CTA chest obtained to r/o PE , especially given flight from [facility] to visit boyfriend CTA chest NEGATIVE for PE. ?reflux w/ nausea /vomiting but suspect n/v from #1 and resolved w/ IV ceftriaxone and hydration as above. Did give dose of pepcid but suspect no ongoing needs as isolated w/ present UTI/pyelo and no further this morning prior to PPI administration and was not sent at dc Orthostatics positive AM 8/10 and instructed to complete bag of LR prior to discharge. Resolution in any sx prior to dc. (3) Syncope: Suspect 2nd to dehydration/infection. Neuro exam nonfocal. Telemetry w/ NSR. Troponin negative. No murmur on exam IVF/hydration, abx for infection as above No further syncope/dizziness/lightheadedness DVT proph: Lovenox SQ while inpatient Plan discharged home on Cipro PO. Urine cx pending at time of discharge and to be called if any resistance Notes For Next Care Provider Medication Changes From Visit Bactrim discontinued Ciprofloxacin PO BID x 5 days for pyelonephritics (got 1 dose IV Ceftriaxone while inpatient) Admission HPI Per Admitting Provider 23 year old female presenting with urinary symptoms/chest pain. Symptoms started 4 days again- urinary frequency, flank pain. Was seen in ED 11/06 and started on Bactrim, seen again on 11/07 and course of antibiotics extended to 10 days. Urine culture grew Lactobacillus species plus low counts of other mixed silvana. Urine culture from 11/07 was 3+ organisms. Symptoms have not improved, now having some nauseas. Notes syncope episode, lightheaded/dizzy prior. Chest pain today, which prompted her to come back to ED. Describes as midsternal, pleuritic. Does not radiate, denies dyspnea. ED Course Significant for: Tachycardic, EKG with sinus tachycardia, trop wnl, CT A&P with Heterogeneous enhancement of both kidneys. Appearance raises the possibility of pyelonephritis. S/p 2L IVF, 1g ceftriaxone. Admission Exam Per Admitting Provider Constitutional: well-appearing, no acute distress HEENT: NCAT, no conjunctival injection CV: regular rhythm, no murmur appreciated, extremities well-perfused, no LE annel a Resp: CTABL, no wheezes/rales/rhonchi appreciated, no increased work of breathing GI: soft, nondistended, nontender MSK: no gross deformities appreciated Skin: warm, dry, no rash appreciated Neuro: alert, oriented, no focal neurologic deficit appreciated Discharge Exam Constitutional: 23yo female resting in bed, NAD, reports feeling well/wanting to go home Head atraumatic, normocephalic, mmm, trachea midline Resp: even/unlabored, no w/c/r, on room air 97% CV: RRR, no significant m/r/g, no pitting edema/calf tenderness GI: +BS, soft/NT : no CVA tenderness MSK/Neuro: nonfocal, strength equal bilaterally, answering questions appropriately Psych: AOx3, cooperative Updated Medication List Medication Instructions Recorded Confirmed Type ciprofloxacin HCl 500 mg tablet 500 mg PO BID 5 days #10 tabs 11/11/23 Rx Hospital Stay Data Consultations 11/10/23 23:34 ED Decision to Admit Stat Diagnostic Imagining Performed Chest X-Ray 11/10/23 21:12 XR chest 1V portable CLINICAL HISTORY: Chest pain, nonspecific COMPARISON STUDY: Chest radiograph November 08, 2023. FINDINGS: Lung volumes are normal. Lungs are clear. There is no pneumothorax or pleural effusion. Cardiac size is normal. Mediastinal contours are normal. There is no evidence for pulmonary edema. IMPRESSION: No acute cardiopulmonary findings. ACT 112: Negative or not required by law. Electronically signed by: Greg White M.D. 11/11/2023 7:30 AM Abdomen/Pelvis CT 11/10/23 21:39 Exam(s): CT ABDOMEN + PELVIS With Contrast IV Amt: 93 cc opti 320 EXAM: CT Abdomen and Pelvis With Intravenous Contrast CLINICAL HISTORY: Reason for exam: abdominal pain, nausea, vomiting, UTI. TECHNIQUE: Axial computed tomography images of the abdomen and pelvis with intravenous contrast. CTDI is 7.48 mGy and DLP is 564.96 mGy-cm. Automated exposure control was utilized for the study. A dose lowering technique was utilized adhering to the principles of ALARA. CONTRAST: Patient received 93 cc opti 320 of IV contrast COMPARISON: 11/08/23 FINDINGS: Lung bases: Unremarkable. No mass. No consolidation. ABDOMEN: Liver: Unremarkable. No mass. Gallbladder and bile ducts: Unremarkable. No calcified stones. No ductal dilation. Pancreas: Unremarkable. No mass. No ductal dilation. Spleen: Unremarkable. No splenomegaly. Adrenals: Unremarkable. No mass. Kidneys and ureters: Heterogeneous enhancement of both kidneys. No hydronephrosis. Stomach and bowel: Increased colonic stool burden suggesting constipation. No bowel obstruction. No mucosal thickening. PELVIS: Appendix: Appendix not visualized. Bladder: Unremarkable. No mass. Reproductive: Unremarkable as visualized. ABDOMEN and PELVIS: Intraperitoneal space: Unremarkable. No free air, significant free fluid, or fluid collection. Bones/joints: No acute fracture. No dislocation. Soft tissues: Unremarkable. Vasculature: Unremarkable. No abdominal aortic aneurysm. Lymph nodes: Unremarkable. No enlarged lymph nodes. IMPRESSION: 1. Heterogeneous enhancement of both kidneys. Appearance raises the possibility of pyelonephritis. Correlation with urinalysis recommended. 2. Increased colonic stool burden suggesting constipation. Electronically signed by: Jose De Jesus Ochoa M.D. 11/10/23 23:27 PM Chest CTA 11/10/23 23:58 Exam(s): CTA CHEST IV Amt: 118 cc's optiray 320 EXAM: CT Angiography Chest With Intravenous Contrast CLINICAL HISTORY: Reason for exam: PE. TECHNIQUE: Axial computed tomographic angiography images of the chest with intravenous contrast. CTDI is 0 mGy and DLP is 254.63 mGy-cm. Automated exposure control was utilized for the study. A dose lowering technique was utilized adhering to the principles of ALARA. MIP reconstructed images were created and reviewed. COMPARISON: No relevant prior studies available. FINDINGS: Pulmonary arteries: Unremarkable. No pulmonary embolism. Aorta: No acute findings. No thoracic aortic aneurysm. Lungs: Unremarkable. No mass. No consolidation. Pleural space: Unremarkable. No significant effusion. No pneumothorax. Heart: Unremarkable. No cardiomegaly. No significant pericardial effusion. Bones/joints: No acute fracture. No dislocation. Soft tissues: Unremarkable. Lymph nodes: Unremarkable. No enlarged lymph nodes. Kidneys and ureters: Nonspecific heterogeneous enhancement of both kidneys. IMPRESSION: 1. No pulmonary embolism. 2. Nonspecific heterogeneous enhancement of both kidneys. Correlate with urinalysis and serum chemistries. Electronically signed by: Jose De Jesus Ochoa M.D. 11/11/23 01:56 AM Discharge Instructions Given to Patient (Per Discharging Provider) You have been hospitalized for abdominal pain, burning with urination, pleuritic chest pain. Imaging of the chest was negative for pneumonia or blood clot. CT imaging of the abdomen/pelvis showed possible pyelonephritis (infection in the urine/kidneys) and you have been given IV antibiotic called Ceftriaxone and urine culture is still pending but given white count is normalized and no further fevers or other symptoms we are going to discharge you on CIPROFLOXACIN to complete the course. Your next dose is due this evening and this is to be taken TWICE a day (every twelve hours) to complete the course. Please avoid excessive exercise while on this medication as there is a risk for Achilles tendon rupture with this medication. Please continue to push oral fluids and stay hydrated. Use over the counter stool softeners to prevent constipation if this occurs. Please be aware antibiotics can make control ineffective and if you are on such, please note to use additional protection. testing was negative. You should follow up with primary care in the next 7-10 days to monitor your status after discharge. Please return to the ER with any fever/chills, chest pain, shortness of breath, inability to keep up with oral hydration, worsening pain, or for any other symptoms concerning for you. It has been a pleasure being a part of the medical team providing for you while you have been in the hospital. Take care! Total Time Total Time Spent Total Time Spent (In Minutes): 35 Coding Level of Care Code INP/OBS EV SAME DAY LV 3,85MIN Diagnoses Pyelonephritis N12 Chest pain R07.9 Syncope R55 Syncope type: unspecified
[2023-11-11 11:23] VITALS: BP 94/64; PULSE 93; O2SAT 97
[2023-11-11] MEDS ORDERED: cefTRIAXone SODIUM 1,000 MG/50 ML BAG IV SCH (21:00)
== END 2023-11-11 12:15 | disposition home or self-care (01) ==
LOC: 2W 20:54 → ED 20:54 → SUATTDRO 23:51 → 2W 11-11 01:28